=== PATIENT | female | born 1935 | race Caucasian/White ===

== ENCOUNTER 2016-07-16 08:55 | Observation (INO) | payer MEDICARE ==
[2016-07-16] VITALS (7 sets, daily range): BP systolic 91–137; BP diastolic 50–78; PULSE 65–82; RESP 14–20; TEMP 97.6–98.6; O2SAT 95–99
[~2016-07-16] VITALS: Ht 162.6 cm; Wt 70.5 kg
[~2016-07-16 08:55] MED LIST: ASPI325T PO; HCTZ25 PO; LISI-360 PO; MECL25 PO; Z.0.WALKERFRONT
[2016-07-16] MEDS ORDERED: SODIUM CHLORIDE 0.9% FLUSH 10 ML FLUSH IVF PRN (09:15)
[2016-07-16] MEDS ORDERED: SODIUM CHLOR 0.9% 1000 ML INJ 1,000 ML IV ONE (09:15)
--- NOTE | 2016-07-16 09:17 | PD ---
HPI Chief Complaint: Chest Pain Time Seen by Provider: 09:00 Travel History International Travel<30 days: Yes Contact w/Intl Traveler<30days: [place] Country Traveled to: [place], [place] Traveled to known affect area: No History of Present Illness HPI 80yo F with PMH of paroxysmal afib, HTN presents to the ED with c/o midsternal chest pain that started this morning at 7am. Pain is midsternal, nonradiating and associated with sob, diaphoresis and nausea. Took aspirin x2, sublingual nitro with little relieve. Pt had fever yesterday and had been coughing for 3 days. She called her PMD Dr. Santana and was started on z-nancy yesterday. Had cardiac cath 2009 and states it was normal. Had game design instructor Dr. Wilson but he retired last year. Has not had stress test for a while. Denies any history of PE, DVT. Was just on cruise ship. PFSH Past Medical History Atrial Fibrillation: Yes (TRANSIENT) Blood Disorders: No Heart Rhythm Problems: Yes Cancer: Yes (hx of breast ca) Cardiac Catheterization: Yes (JULY 2009) Cardiovascular Problems: Yes (TRANSIENT A. FIB) High Cholesterol: Yes Chemotherapy: No Congestive Heart Failure: No Diabetes: No Diminished Hearing: No Endocrine: No Glaucoma: No Genitourinary: No Hepatitis: No Hiatal Hernia: Yes Hypertension: Yes Immune Disorder: No Musculoskeletal: No (generalized weakness today) Neurologic: No Psychiatric: No Reproductive: No Respiratory: No Myocardial Infarction: No Radiation Therapy: No Thyroid Disease: No ?: Not Menopausal: Yes Ovarian Cysts: Yes (WEDGE RESECTION IN 1968) Past Surgical History Coronary Artery Bypass Graft: No Gynecologic Surgery: Yes (WEDGE RESECT. OVARY, CHAPIS) Hysterectomy: Yes (1971) Other Surgery: Yes Social History Alcohol Use: Yes (WINE DAILY X2) Tobacco Use: No Substance Use: No Allergies-Medications (Allergen,Severity, Reaction): Coded Allergies: No Known Allergies (Verified , 07/16/16) Reported Meds & Prescriptions Reported Meds & Active Scripts Active Reported Carvedilol 6.25 Mg Tab 6.25 Mg PO DAILY Lisinopril 10 Mg Tab 10 Mg PO DAILY Aspirin 325 Mg Tab 325 Mg PO DAILY Review of Systems Except as stated in HPI: all other systems reviewed are Neg Physical Exam Narrative GENERAL: 80yo F in mild distress. SKIN: Focused skin assessment warm/dry. HEAD: Atraumatic. Normocephalic. EYES: Pupils equal and round. No scleral icterus. No injection or drainage. ENT: No nasal bleeding or discharge. Mucous membranes pink and moist. NECK: Trachea midline. No JVD. CARDIOVASCULAR: Regular rate and rhythm. No murmur appreciated. RESPIRATORY: No accessory muscle use. Clear to auscultation. Breath sounds equal bilaterally. GASTROINTESTINAL: Abdomen soft, non-tender, nondistended. MUSCULOSKELETAL: No obvious deformities. No clubbing. No cyanosis. No edema. No calf tenderness. NEUROLOGICAL: Awake and alert. No obvious cranial nerve deficits. Motor grossly within normal limits. Normal speech. PSYCHIATRIC: Appropriate mood and affect; insight and judgment normal. Data Data Last Documented VS Vital Signs Date Time Temp Pulse Resp B/P Pulse Ox O2 Delivery O2 Flow Rate FiO2 07/16/16 10:36 14 07/16/16 10:15 67 119/58 98 Nasal Cannula 2 07/16/16 09:05 97.6 Orders Electrocardiogram (07/16/16 ) Basic Metabolic Panel (Bmp) (07/16/16 09:11) B-Type Natriuretic Peptide (07/16/16 09:11) Ckmb (Isoenzyme) Profile (07/16/16 09:11) Complete Blood Count With Diff (07/16/16 09:11) Magnesium (Mg) (07/16/16 09:11) Prothrombin Time / Inr (Pt) (07/16/16 09:11) Act Partial Throm Time (Ptt) (07/16/16 09:11) Troponin I (07/16/16 09:11) Chest, Single Ap (07/16/16 09:11) Ecg Monitoring (07/16/16 09:11) Bilateral Bp Monitoring (07/16/16 09:11) Iv Access Insert/Monitor (07/16/16 09:11) Oximetry (07/16/16 09:11) Oxygen Administration (07/16/16 09:11) Sodium Chloride 0.9% Flush (Ns Flush) (07/16/16 09:15) Lactic Acid Sepsis Protocol (07/16/16 09:11) Sodium Chlor 0.9% 1000 Ml Inj (Ns 1000 M (07/16/16 09:15) Morphine Inj (Morphine Inj) (07/16/16 09:45) CKMB (07/16/16 09:15) CKMB% (07/16/16 09:15) Admit Order (Ed Use Only) (07/16/16 11:03) Labs Laboratory Tests Test 07/16/16 07/16/16 09:15 10:30 White Blood Count 12.7 TH/MM3 Red Blood Count 4.57 MIL/MM3 Hemoglobin 14.2 GM/DL Hematocrit 42.0 % Mean Corpuscular Volume 92.0 FL Mean Corpuscular Hemoglobin 31.2 PG Mean Corpuscular Hemoglobin 33.9 % Concent Red Cell Distribution Width 14.8 % Platelet Count 195 TH/MM3 Mean Platelet Volume 10.1 FL Neutrophils (%) (Auto) 65.4 % Lymphocytes (%) (Auto) 20.4 % Monocytes (%) (Auto) 10.2 % Eosinophils (%) (Auto) 3.1 % Basophils (%) (Auto) 0.9 % Neutrophils # (Auto) 8.3 TH/MM3 Lymphocytes # (Auto) 2.6 TH/MM3 Monocytes # (Auto) 1.3 TH/MM3 Eosinophils # (Auto) 0.4 TH/MM3 Basophils # (Auto) 0.1 TH/MM3 CBC Comment DIFF FINAL Differential Comment Prothrombin Time 11.5 SEC Prothromb Time International 1.0 RATIO Ratio Activated Partial 27.8 SEC Thromboplast Time Sodium Level 135 MEQ/L Potassium Level 3.8 MEQ/L Chloride Level 98 MEQ/L Carbon Dioxide Level 28.3 MEQ/L Anion Gap 9 MEQ/L Blood Urea Nitrogen 13 MG/DL Creatinine 0.91 MG/DL Estimat Glomerular Filtration 60 ML/MIN Rate Random Glucose 159 MG/DL Calcium Level 9.1 MG/DL Magnesium Level 2.0 MG/DL Total Creatine Kinase 147 U/L Creatine Kinase MB 0.9 NG/ML Troponin I LESS THAN 0.02 NG/ML B-Type Natriuretic Peptide 51 PG/ML Hemoglobin A1c 5.4 % Lactic Acid Level 1.7 mmol/L [facility] Medical Decision Making Medical Screen Exam Complete: Yes Emergency Medical Condition: Yes Interpretation(s) EKG: NSR 74bpm. Normal axis. No ST segment elevation or depression. Differential Diagnosis Pneumonia vs. ACS vs. costochondritis vs. pericarditis vs. PE Narrative Course 80yo F with typical chest pain that started at 7am this morning that was associated with sob, diaphoresis and nausea. Labs reviewed, mild leukocytosis at 12.7. Troponin negative. BNP 51. CXR showed no acute disease. Pt given morphine 4mg with some relieve of chest pain. 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 Will admit to chest pain center for serial EKG and cardiac enzyme. Pt's is Dr. Jalloh, radiologist and wants the game design instructor to call him at [phone]. Diagnosis Primary Impression: Chest pain Qualified Code: R07.9 - Chest pain, unspecified type Admitting Information Admitting Physician Requests: Anuja Yu DO July 16, 2016 09:17
[2016-07-16 09:31] LABS: AUTOMATED NEUTROPHIL # 8.3 TH/MM3 (1.8-7.7); BASOPHIL # 0.1 TH/MM3 (0-0.2); BASOPHIL % 0.9 % (0.0-2.0); EOSINOPHIL # 0.4 TH/MM3 (0-0.4); EOSINOPHIL % 3.1 % (0.0-4.0); HEMO FLAGS DIFF FINAL; LYMPH % 20.4 % (9.0-44.0); LYMPHOCYTE # 2.6 TH/MM3 (1.0-4.8); MEAN CORPUSCULAR HEMOGLOBIN 31.2 PG (27.0-34.0); MEAN CORPUSCULAR HGB CONC 33.9 % (32.0-36.0); MONO % 10.2 % (0.0-8.0); NEUT % 65.4 % (16.0-70.0); PLATELET COUNT 195 TH/MM3 (150-450); RED BLOOD COUNT 4.57 MIL/MM3 (4.00-5.30); RED CELL DISTRIBUTION WIDTH 14.8 % (11.6-17.2); WHITE BLOOD COUNT 12.7 TH/MM3 (4.0-11.0)
--- NOTE | 2016-07-16 09:33 | RADRPT ---
EXAM DATE/TIME: 07/16/2016 09:30 [facility] COMPARISON: CHEST SINGLE AP, April 13, 2014, 6:19. INDICATIONS : Chest pain. MEDICAL HISTORY : None. SURGICAL HISTORY : None. ENCOUNTER: Initial ACUITY: 1 day PAIN SCORE: 8/10 LOCATION: Bilateral chest FINDINGS: A single view of the chest demonstrates the lungs to be symmetrically aerated without evidence of mas s, infiltrate or effusion. The cardiomediastinal contours are unremarkable. Osseous structures are intact. CONCLUSION: No acute disease. Chris Nino MD on July 16, 2016 at 9:31 Board Certified Radiologist. This report was verified electronically.
[2016-07-16 09:45] LABS: APTT (PATIENT) 27.8 SEC (24.3-30.1); PROTHROMBIN TIME - PATIENT 11.5 SEC (9.8-11.6)
[2016-07-16] MEDS ORDERED: MORPHINE SULFATE 4 MG/ML INJ IV PUSH ONE (09:45)
[2016-07-16] MEDS ORDERED: MECL1TAB42 (09:57)
[2016-07-16] MEDS ORDERED: LISI10TA3 PO (09:57)
[2016-07-16] MEDS ORDERED: HYDRODIURIL PO (09:57)
[2016-07-16] MEDS ORDERED: ASPI325T PO (09:57)
[2016-07-16 10:05] LABS: ANION GAP 9 MEQ/L (5-15); BICARBONATE 28.3 MEQ/L (21.0-32.0); BLOOD UREA NITROGEN 13 MG/DL (7-18); CHLORIDE 98 MEQ/L (98-107); CREATINE KINASE 147 U/L (26-192); GLOMERULAR FILTRATION RATE 60 ML/MIN (>89); SODIUM (NA) 135 MEQ/L (136-145)
[2016-07-16 10:06] LABS: POTASSIUM 3.8 MEQ/L (3.5-5.1)
[2016-07-16 10:19] LABS: CKMB 0.9 NG/ML (0.5-3.6)
[2016-07-16] MEDS ORDERED: CARV6.252 PO (12:10)
--- NOTE | 2016-07-16 12:19 | HHI.HP ---
[facility] Primary Care Physician Marla Jones MD Chief Complaint Chest pain History of Present Illness This is a 80-year-old female that presents to ED via private vehicle with a complaint of coughing and chest pain. She states that for the last 4 days she has had a pretty bad cough. He is been nonproductive but has been keeping her from sleeping. She also believes she had subjective fever couple days ago. She 's had some sweats. She called her primary care physician Dr. Jennifer Jones and he wanted to see her but she states that she felt too weak to go any called in some Zithromax. She took a dose yesterday and also this morning. She states this morning she was awoken at 7:00 with an achiness in the center of her chest. She took 2 full-strength aspirin but the discomfort continued to worsen. He got to about a 7 out of 10. She came into the emergency from was given subluminal nitroglycerin which brought about a 5 out of 10. She was given IV morphine which helped some more she believes now swelling gone. It lasted for several hours. She was not short of breath with it. She was nauseous with it. She felt diaphoretic with it. She denies history of heart disease. She states it heart catheter[place] of [place] 5 years ago that was normal. She recently traveled on a cruise to [facility] and became sick afterwards. Review of Systems General: Patient has had subjective fevers, has had chills recent, and slightly travel via cruise ship to [facility]. HEENT: Patient denies headache, sore throat, difficulty swallowing. Cardiovascular: Has the chest discomfort as mentioned above. Denies sensation of heart beating rapidly or irregularly. No syncope. Respiratory: Denies shortness of breath or inspirational chest discomfort. She has had a nonproductive cough for 4 days. GI: She was nauseous. Patient denies vomiting, diarrhea, abdominal pain, bloody stools. Musculoskeletal: Patient denies joint pain or edema. Denies calf pain or edema. Neurovascular: Patient denies numbness, tingling, weakness in extremities. Denies headache. Endocrine: Denies polyuria and polydipsia. Hematologic: Denies easy bruising. Skin: Denies rash or itching. Past Family Social History Allergies: Coded Allergies: No Known Allergies (Verified , 07/16/16) Past Medical History hypertension paroxysmal atrial fibrillation. Denies hyperlipidemia, diabetes, and known CAD. Past Surgical History hysterectomy and oophorectomy. Reported Medications Reported Meds & Active Scripts Active Reported Lisinopril 10 Mg Tab 10 Mg PO DAILY [Hydrodiuril] 50 50 Mg PO DAILY Aspirin 325 Mg Tab 325 Mg PO DAILY Active Ordered Medications Current Medications Medications (Trade) Dose Ordered Sig/Gordy Route Start Time Stop Time Status Last Admin (NS Flush) 2 ml UNSCH PRN IVF 07/16/16 09:15 Family History her mother passed at 93 of a heart attack. Her father at age of 77 secondary to coronary disease. She has a brother that recently at age 82 of coronary disease. Social History patient is a nonsmoker. Denies illicit drugs. She has an average glass of wine daily. 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 Physical Exam Vital Signs Vital Signs Date Time Temp Pulse Resp B/P Pulse Ox O2 Delivery O2 Flow Rate FiO2 07/16/16 10:36 14 07/16/16 10:15 67 14 119/58 98 Nasal Cannula 2 07/16/16 09:19 66 14 107/56 95 Nasal Cannula 2 07/16/16 09:19 70 14 102/56 95 Nasal Cannula 2 07/16/16 09:19 95 Nasal Cannula 2 07/16/16 09:13 78 16 96 Nasal Cannula 2 07/16/16 09:05 97.6 82 20 91/50 95 07/16/16 09:05 98.6 71 14 102/57 96 Physical Exam GENERAL: This is a well-nourished, well-developed patient, in no apparent distress. Patient speaks in clear complete sentences. Patient is pleasant. HEENT: Head is atraumatic and normocephalic. Neck is supple without lymphadenopathy and trachea is midline. No JVD or carotid bruits. CARDIOVASCULAR: Regular rate and rhythm without murmurs, gallops, or rubs. RESPIRATORY: Clear to auscultation. Breath sounds equal bilaterally. No wheezes , rales, or rhonchi. Chest wall is nontender. No use of accessory muscles. GASTROINTESTINAL: Abdomen is nontender, nondistended. Abdomen soft. No obvious pulsatile mass or bruit. No CVA tenderness. Strong femoral pulses bilaterally. Normal bowel sounds in all quadrants. MUSCULOSKELETAL: Patient is moving upper and lower extremities freely. No calf tenderness or edema, no Homans sign. Strong pulses in upper and lower extremities. NEUROLOGICAL: Patient is alert and oriented. Cranial nerves 2-12 are grossly intact. No focal deficits and speech is clear. SKIN: No rash and turgor is normal. Laboratory Laboratory Tests Test 07/16/16 07/16/16 09:15 10:30 White Blood Count 12.7 Red Blood Count 4.57 Hemoglobin 14.2 Hematocrit 42.0 Mean Corpuscular Volume 92.0 Mean Corpuscular Hemoglobin 31.2 Mean Corpuscular Hemoglobin 33.9 Concent Red Cell Distribution Width 14.8 Platelet Count 195 Mean Platelet Volume 10.1 Neutrophils (%) (Auto) 65.4 Lymphocytes (%) (Auto) 20.4 Monocytes (%) (Auto) 10.2 Eosinophils (%) (Auto) 3.1 Basophils (%) (Auto) 0.9 Neutrophils # (Auto) 8.3 Lymphocytes # (Auto) 2.6 Monocytes # (Auto) 1.3 Eosinophils # (Auto) 0.4 Basophils # (Auto) 0.1 CBC Comment DIFF FINAL Differential Comment Prothrombin Time 11.5 Prothromb Time International 1.0 Ratio Activated Partial 27.8 Thromboplast Time Sodium Level 135 Potassium Level 3.8 Chloride Level 98 Carbon Dioxide Level 28.3 Anion Gap 9 Blood Urea Nitrogen 13 Creatinine 0.91 Estimat Glomerular Filtration 60 Rate Random Glucose 159 Calcium Level 9.1 Magnesium Level 2.0 Total Creatine Kinase 147 Creatine Kinase MB 0.9 Troponin I LESS THAN 0.02 B-Type Natriuretic Peptide 51 Lactic Acid Level 1.7 Result Diagram: 07/16/1615 07/16/1615 Assessment and Plan Assessment and Plan * Chest pain: Patient will have serial cardiac enzymes and EKGs for ruling out purposes. She will be seen by Dr. Kerr in the chest pain center. She will have a Lexiscan and if nonischemic will be discharged home. She will need follow-up with her primary care physician Dr. Jennifer Jones * Hypertension: Continue current medication. Patient is stable time. She is agreeable to this plan. Barak Rahman July 16, 2016 12:19
[2016-07-16] MEDS ORDERED: ACETAMINOPHEN 500 MG CPLT PO PRN (12:30)
[2016-07-16] MEDS ORDERED: ONDANSETRON HCL 4 MG/2 ML VIAL IV PRN (12:30)
[2016-07-16] MEDS ORDERED: PANTOPRAZOLE SOD 40 MG DELAYED RELEASE TAB PO SCH (12:30)
[2016-07-16] MEDS ORDERED: ACETAMINOPHEN/HYDROcodone 325 MG/7.5 MG TAB PO PRN (12:30)
[2016-07-16] MEDS ORDERED: SODIUM CHLORIDE 0.9% FLUSH 5 ML FLUSH IVF PRN (12:30)
[2016-07-16 13:22] LABS: CREATINE KINASE 118 U/L (26-192)
[2016-07-16 13:34] LABS: CKMB 0.9 NG/ML (0.5-3.6)
--- NOTE | 2016-07-16 13:35 | EKG ---
Date Performed: 07/16/2016 Time Performed: 09:05:05 PTAGE: 80 years EKG: Sinus rhythm LOW QRS VOLTAGE IN PRECORDIAL LEADS Since previous tracing, no significant change noted BORDERLINE E CG PREVIOUS TRACING : 06/22/2015 08.36 DOCTOR: Yahaira Lawrence Interpretating Date/Time 07/16/2016 13:35:00
[2016-07-16] MEDS ORDERED: REGADENOSON INJ 0.4 MG/5 ML SYR ONE (15:17)
[2016-07-16] MEDS ORDERED: AMINOPHYLLINE INJ 250 MG/10 ML VIAL ONE (16:07)
--- NOTE | 2016-07-16 16:50 | HHI.DCPOC ---
Discharge Care Plan Diagnosis: (1) Chest pain (2) HTN (hypertension) Goals to Promote Your Health * To prevent worsening of your condition and complications * To maintain your health at the optimal level Directions to Meet Your Goals Take your medications as prescribed Follow your dietary instruction Follow activity as directed Keep your appointments as scheduled Take your immunizations and boosters as scheduled If your symptoms worsen call your PCP, if no PCP go to Urgent Care Center or Emergency Room Smoking is Dangerous to Your Health. Avoid second hand smoke Call the 24-hour hour crisis hotline for domestic abuse at Barak Rahman July 16, 2016 16:50
--- NOTE | 2016-07-16 17:14 | TR ---
Date Performed: 07/16/2016 Time Performed: 15:51:05 DOCTOR: Juan Kerr DRUG LIST: CLINICAL HISTORY: REASON FOR TEST: REASON FOR ENDING: OBSERVATION: CONCLUSION: Lexiscan stress test was performed under standard four minute protocol. Radionuclide was injected one minute prior to ending the test. Developed dyspnea. No electrocardiographic abnorma lities were present to suggest ischemia. Recovery was quick and uneventful with resolution of dyspnea . Nuclear imaging and interpretation are pending. COMMENTS:
[2016-07-16 17:50] LABS: CREATINE KINASE 130 U/L (26-192)
--- NOTE | 2016-07-16 18:17 | EKG ---
Date Performed: 07/16/2016 Time Performed: 12:53:54 PTAGE: 80 years EKG: Sinus rhythm LOW QRS VOLTAGE IN PRECORDIAL LEADS POOR PRECORDIAL R-WAVE PROGRESSION BORDERLINE ECG PREVIOUS TRACING : 07/16/2016 09.05 DOCTOR: Juan Kerr Interpretating Date/Time 07/16/2016 18:16:02
--- NOTE | 2016-07-16 18:19 | EKG ---
Date Performed: 07/16/2016 Time Performed: 16:52:19 PTAGE: 80 years EKG: Sinus rhythm SEPTAL NONSPECIFIC T-WAVE CHANGES BORDERLINE ECG PREVIOUS TRACING : 07/16/2016 16.51 DOCTOR: Juan Kerr Interpretating Date/Time 07/18/2016 07:14:08
--- NOTE | 2016-07-16 18:48 | RADRPT ---
EXAM DATE/TIME: 07/16/2016 15:07 [facility] COMPARISON: No previous studies available for comparison. INDICATIONS : Chest pain x 4 days. Angina. DOSE: 27.3 mCi Tc99m Myoview at stress. 8.3 mCi Tc99m Myoview at rest. 0.4 mg Lexiscan STRESS SYMPTOMS: Weird feeling and nausea. MEDICATIONS: 1.) 100 mg Aminophylline IV EJECTION FRACTION: > 70% MEDICAL HISTORY : Hypertension. Carcinoma, breast. Cardiovascular disease A-fib. SURGICAL HISTORY : Hysterectomy. ENCOUNTER: Subsequent ACUITY: 4 - 6 days PAIN SCALE: 3/10 LOCATION: Left chest TECHNIQUE: The patient underwent pharmacologic stress with infusion of prescribed dose. Continuous ECG tracing was monitored during stress. Gated SPECT imaging was performed after stress and conventional SPECT i maging was performed at rest. The examination was performed on a SPECT/CT scanner, both attenuation and non-corrected datasets were reviewed. FINDINGS: The gated cine loop images demonstrate no focal wall motion abnormality. The left ventricular ejecti on fraction is calculated at 71%. The cardiac SPECT stress and rest images demonstrate no fixed or reversible defects to suggest infarc t or ischemia. CONCLUSION: No evidence of infarct, ischemia or focal wall motion abnormality. Left ventricular ejection fractio n is calculated at 71%. RISK CATEGORY: Low risk (less than 1% annual mortality rate). Judson Tena MD on July 16, 2016 at 18:43 Board Certified Radiologist. This report was verified electronically.
[2016-07-16] MEDS ORDERED: SODIUM CHLORIDE 0.9% FLUSH 5 ML FLUSH IVF SCH (21:00)
[2016-07-17] MEDS ORDERED: ASPIRIN 325 MG TAB PO SCH ×2 (09:00)
[2016-07-17] MEDS ORDERED: HYDROCHLOROTHIAZIDE 50 MG TAB PO SCH (09:00)
[2016-07-17] MEDS ORDERED: LISINOPRIL 10 MG TAB PO SCH (09:00)
[2016-07-17] MEDS ORDERED: HYDR50TA3 PO (10:34)
[2016-07-17 12:02] LABS: HEMOGLOBIN A1a 0.9 %; HEMOGLOBIN A1b 2.1 %; HEMOGLOBIN Ao 85.2 %; HEMOGLOBIN LA1C 2.2 %; HEMOGLOBIN P3 3.8 %
== END 2016-07-16 19:59 | disposition home or self-care (01) ==
LOC: NEPE 08:55 → NEDA 11:04 → NEPFCDU 12:25
PROVIDERS: ADMIT Family Medicine; ATTEND Family Medicine
DX: R07.89 Other chest pain (principal); R05 Cough; I48.0 Paroxysmal atrial fibrillation; I10 Essential (primary) hypertension; E78.00 Pure hypercholesterolemia, unspecified; D72.829 Elevated white blood cell count, unspecified; Z79.82 Long term (current) use of aspirin; Z85.3 Personal history of malignant neoplasm of breast
CPT/HCPCS: 71010; 78452; 80048; 82550; 82552; 83036; 83605; 83735; 83880; 84484; 85025; 85610; 85730; 93005; 93017; 96374; 99285; A9502; G0378; J0280; J2270; J2785; J7030

== ENCOUNTER → 2016-09-15 | Outpatient (CLI) | payer MEDICARE ==
[~2016-09-15] MED LIST changes: +CARV6.252 PO; -HCTZ25 PO; +HYDR50TA3 PO; -LISI-360 PO; +LISI10TA3 PO; -MECL25 PO; -Z.0.WALKERFRONT
[2016-09-15 07:25] LABS: MEAN CELL VOLUME 92.8 FL (80.0-100.0); MEAN CORPUSCULAR HEMOGLOBIN 30.9 PG (27.0-34.0); MEAN CORPUSCULAR HGB CONC 33.3 % (32.0-36.0); PLATELET COUNT 193 TH/MM3 (150-450); RED BLOOD COUNT 4.53 MIL/MM3 (4.00-5.30); RED CELL DISTRIBUTION WIDTH 15.2 % (11.6-17.2); REVIEW FLAG FINAL; WHITE BLOOD COUNT 8.5 TH/MM3 (4.0-11.0)
[2016-09-15 07:57] LABS: ALT (GPT) 23 U/L (10-53); ANION GAP 10 MEQ/L (5-15); AST (GOT) 34 U/L (15-37); BICARBONATE 30.5 MEQ/L (21.0-32.0); BLOOD UREA NITROGEN 14 MG/DL (7-18); CHLORIDE 102 MEQ/L (98-107); GLOMERULAR FILTRATION RATE 61 ML/MIN (>89); GLUCOSE,FASTING 106 MG/DL (74-99); SODIUM (NA) 142 MEQ/L (136-145)
[2016-09-15 08:01] LABS: ALKALINE PHOSPHATASE 78 U/L (45-117); LDL CHOLESTEROL 99 MG/DL (0-99); TOTAL BILIRUBIN ADULT 0.5 MG/DL (0.2-1.0)
[2016-09-15 17:53] LABS: HEMOGLOBIN A1a 0.9 %; HEMOGLOBIN A1b 1.2 %; HEMOGLOBIN Ao 85.2 %; HEMOGLOBIN F 0.9 %; HEMOGLOBIN LA1C 1.9 %; HEMOGLOBIN P3 3.7 %
== END ==
LOC: CLAB 07:08
PROVIDERS: ATTEND Family Medicine
DX: I10 Essential (primary) hypertension (principal); C50.911 Malignant neoplasm of unspecified site of right female breast; E78.5 Hyperlipidemia, unspecified; R94.6 Abnormal results of thyroid function studies; R73.02 Impaired glucose tolerance (oral)
CPT/HCPCS: 36415; 80053; 80061; 83036; 84443; 85027

== ENCOUNTER → 2017-01-31 | Outpatient (CLI) | payer MEDICARE ==
[~2017-01-31] MED LIST changes: +ASPI-183 PO; -ASPI325T PO
[2017-01-31 07:47] LABS: HEMATOCRIT 43.2 % (35.0-46.0); MEAN CELL VOLUME 94.3 FL (80.0-100.0); MEAN CORPUSCULAR HEMOGLOBIN 31.5 PG (27.0-34.0); MEAN CORPUSCULAR HGB CONC 33.4 % (32.0-36.0); PLATELET COUNT 209 TH/MM3 (150-450); RED BLOOD COUNT 4.58 MIL/MM3 (4.00-5.30); RED CELL DISTRIBUTION WIDTH 14.6 % (11.6-17.2); REVIEW FLAG FINAL; WHITE BLOOD COUNT 8.2 TH/MM3 (4.0-11.0)
[2017-01-31 08:08] LABS: ANION GAP 9 MEQ/L (5-15); AST (GOT) 25 U/L (15-37); BICARBONATE 29.2 MEQ/L (21.0-32.0); BLOOD UREA NITROGEN 13 MG/DL (7-18); CHLORIDE 101 MEQ/L (98-107); GLOMERULAR FILTRATION RATE 62 ML/MIN (>89); GLUCOSE,FASTING 105 MG/DL (74-99); POTASSIUM 3.4 MEQ/L (3.5-5.1); SODIUM (NA) 139 MEQ/L (136-145)
[2017-01-31 08:09] LABS: ALT (GPT) 22 U/L (10-53)
[2017-01-31 08:19] LABS: ALKALINE PHOSPHATASE 79 U/L (45-117); LDL CHOLESTEROL 121 MG/DL (0-99); TOTAL BILIRUBIN ADULT 0.4 MG/DL (0.2-1.0)
== END ==
LOC: CLAB 07:20
PROVIDERS: ATTEND Family Medicine
DX: B34.9 Viral infection, unspecified (principal); C50.911 Malignant neoplasm of unspecified site of right female breast; E78.5 Hyperlipidemia, unspecified; I10 Essential (primary) hypertension
CPT/HCPCS: 36415; 80053; 80061; 84443; 85027

== ENCOUNTER → 2017-04-25 | Outpatient (CLI) | payer MEDICARE ==
[2017-04-25 08:00] LABS: HEMATOCRIT 40.3 % (35.0-46.0); HEMOGLOBIN 14.1 GM/DL (11.6-15.3); MEAN CELL VOLUME 92.8 FL (80.0-100.0); MEAN CORPUSCULAR HEMOGLOBIN 32.6 PG (27.0-34.0); MEAN CORPUSCULAR HGB CONC 35.1 % (32.0-36.0); MEAN PLATELET VOLUME 9.8 FL (7.0-11.0); PLATELET COUNT 190 TH/MM3 (150-450); RED BLOOD COUNT 4.34 MIL/MM3 (4.00-5.30); RED CELL DISTRIBUTION WIDTH 14.1 % (11.6-17.2); WHITE BLOOD COUNT 7.9 TH/MM3 (4.0-11.0)
[2017-04-25 08:24] LABS: ALBUMIN 3.3 GM/DL (3.4-5.0); AST (GOT) 24 U/L (15-37); BICARBONATE 30.8 MEQ/L (21.0-32.0); BLOOD UREA NITROGEN 13 MG/DL (7-18); CALCIUM 8.5 MG/DL (8.5-10.1); CHLORIDE 103 MEQ/L (98-107); CHOLESTEROL 190 MG/DL (120-200); CREATININE 0.89 MG/DL (0.50-1.00); GLOMERULAR FILTRATION RATE 61 ML/MIN (>89); GLUCOSE,FASTING 99 MG/DL (74-99); SODIUM (NA) 141 MEQ/L (136-145)
[2017-04-25 08:34] LABS: ALKALINE PHOSPHATASE 81 U/L (45-117); ALT (GPT) 22 U/L (10-53); HDL CHOLESTEROL 44.1 MG/DL (40.0-60.0); LDL CHOLESTEROL 121 MG/DL (0-99); TOTAL BILIRUBIN ADULT 0.3 MG/DL (0.2-1.0); TOTAL PROTEIN 7.5 GM/DL (6.4-8.2); TRIGLYCERIDES 127 MG/DL (42-150)
[2017-04-25 17:10] LABS: HEMOGLOBIN A1C 5.7 % (4.3-6.0)
== END ==
LOC: CLAB 07:22
PROVIDERS: ATTEND Family Medicine
DX: E78.5 Hyperlipidemia, unspecified (principal); I10 Essential (primary) hypertension; R73.02 Impaired glucose tolerance (oral); R94.6 Abnormal results of thyroid function studies; C50.911 Malignant neoplasm of unspecified site of right female breast; Z68.31 Body mass index [BMI] 31.0-31.9, adult
CPT/HCPCS: 36415; 80053; 80061; 83036; 84443; 85027

== ENCOUNTER → 2017-08-29 | Outpatient (CLI) | payer MEDICARE ==
[2017-08-29 07:35] LABS: AUTOMATED NEUTROPHIL # 3.3 TH/MM3 (1.8-7.7); BASOPHIL # 0.1 TH/MM3 (0-0.2); EOSINOPHIL # 0.2 TH/MM3 (0-0.4); EOSINOPHIL % 3.5 % (0.0-4.0); HEMOGLOBIN 14.5 GM/DL (11.6-15.3); LYMPH % 37.8 % (9.0-44.0); LYMPHOCYTE # 2.7 TH/MM3 (1.0-4.8); MEAN CELL VOLUME 93.3 FL (80.0-100.0); MEAN CORPUSCULAR HEMOGLOBIN 31.4 PG (27.0-34.0); MEAN CORPUSCULAR HGB CONC 33.7 % (32.0-36.0); MEAN PLATELET VOLUME 10.1 FL (7.0-11.0); MONO % 10.2 % (0.0-8.0); MONOCYTE # 0.7 TH/MM3 (0-0.9); NEUT % 47.5 % (16.0-70.0); PLATELET COUNT 193 TH/MM3 (150-450); RED BLOOD COUNT 4.61 MIL/MM3 (4.00-5.30); RED CELL DISTRIBUTION WIDTH 14.2 % (11.6-17.2)
[2017-08-29 08:06] LABS: ALKALINE PHOSPHATASE 71 U/L (45-117); ALT (GPT) 26 U/L (10-53); HDL CHOLESTEROL 43.1 MG/DL (40.0-60.0); TOTAL BILIRUBIN ADULT 0.4 MG/DL (0.2-1.0); TOTAL PROTEIN 7.5 GM/DL (6.4-8.2); TRIGLYCERIDES 117 MG/DL (42-150)
[2017-08-29 08:08] LABS: ALBUMIN 3.5 GM/DL (3.4-5.0); AST (GOT) 36 U/L (15-37); BLOOD UREA NITROGEN 15 MG/DL (7-18); CALCIUM 8.9 MG/DL (8.5-10.1); CHLORIDE 103 MEQ/L (98-107); CHOLESTEROL 198 MG/DL (120-200); CHOLESTEROL/ HDL RATIO 4.59 RATIO; CREATININE 0.91 MG/DL (0.50-1.00); GLOMERULAR FILTRATION RATE 60 ML/MIN (>89); GLUCOSE,FASTING 103 MG/DL (74-99); LDL CHOLESTEROL 132 MG/DL (0-99); SODIUM (NA) 142 MEQ/L (136-145)
== END ==
LOC: CLAB 06:58
PROVIDERS: ATTEND Family Medicine
DX: E78.2 Mixed hyperlipidemia (principal); I10 Essential (primary) hypertension
CPT/HCPCS: 36415; 80053; 80061; 84443; 85025